=== PATIENT | male | born 1980 | race Caucasian/White ===

== ENCOUNTER 2017-02-08 10:48 | Emergency (ER) | payer OTHER ==
[~2017-02-08] VITALS: Ht 177.8 cm; Wt 94.2 kg
[~2017-02-08 10:48] MED LIST: ACID CONTROL150 MG PO; AMLODIPINE BES2.5 MG PO; AUGMENTIN875 MG PO; CARAFATE100 MG/ML PO; DEXILANT60 MG PO; FLEXERIL5 MG PO; INDOCIN25 MG PO; LIBRIUM25 MG PO; LIDOCAINE20 MG/1 M5 PO; LORTAB 5-325 M1 EACH PO; MOTRIN600 MG PO; MOTRIN800 MG PO; NAPROSYN500 MG PO; NORCO 5/3251 TABLET PO; NORCO 7.5/321 TABLET PO; PANTOPRAZOLE SO40 MG PO; PEN-VEE K,VEET500 MG PO; PRILOSEC20 MG PO; PROTONIX40 MG PO; THIAMINE HCL100 MG PO; TRAMADOL HCL50 MG PO; ULTRAM50 MG PO
[2017-02-08 11:05] VITALS: BP 168/108
[2017-02-08] MEDS ORDERED: KEFLEX500 MG PO (11:18)
[2017-02-08] MEDS ORDERED: BACTRIM,SEPT1 TABLET PO (11:18)
[2017-02-08] MEDS ORDERED: ULTRAM50 MG PO (11:18)
== END 2017-02-08 11:29 | disposition home or self-care (01) ==
LOC: EME 10:48
DX: L08.9 Local infection of the skin and subcutaneous tissue, unspecified (principal)
CPT/HCPCS: 99281; 99284

== ENCOUNTER 2017-03-19 09:42 | Inpatient (IN) | payer OTHER ==
[~2017-03-19] VITALS: Ht 177.8 cm; Wt 98.3 kg
[~2017-03-19 09:42] MED LIST changes: +BACTRIM,SEPT1 TABLET PO; +KEFLEX500 MG PO
[2017-03-19 11:01] LABS: BASOPHIL COUNT 0.1 K/uL (0-0.1); EOSINOPHIL (%) 0.7 % (0-5); HEMATOCRIT 55.5 % (38.0-50.0); IMMATURE GRANULOCYTE (%) 0.2 % (0.0-0.7); INSTRUMENT ABS NEUTROPHIL CT 2.9 K/uL; MCH 31.3 PG (29.0-34.0); MCHC 35.7 G/DL (30.0-36.0); MCV 87.7 FL (86-99); MEAN PLAT.VOLUME 9.6 uM^3 (9.0-12.4); MONOCYTE (%) 12.5 % (3-12); MONOCYTE COUNT 0.6 K/uL (0-0.8); NEUTROPHIL (%) 62.3 % (45-76); NEUTROPHIL COUNT 2.9 K/uL (1.8-6.4); PLATELET COUNT 231 K/uL (156-360); RBC DIS.WIDTH-CV 12.8 % (11.8-14.6); RBC DIS.WIDTH-SD 41.3 % (39-53); RED BLOOD COUNT 6.33 M/uL (4.00-5.50); WHITE BLOOD COUNT 4.6 K/uL (4.1-10.2)
[2017-03-19 11:08] LABS: CHLORIDE 103 mEq/L (99-109); POTASSIUM 4.1 mEq/L (3.7-5.4); SODIUM 139 mEq/L (136-147)
[2017-03-19 11:11] LABS: GLUCOSE 110 mg/dL (70-99)
[2017-03-19 11:12] LABS: ANION GAP 19 MEQ/L (2-14)
[2017-03-19 11:13] LABS: TOTAL BILIRUBIN 1.8 mg/dL (0.0-1.0)
[2017-03-19 11:14] LABS: ALKALINE PHOSPHATASE 105 IU/L (3-129); GFR ESTIMATE (CALCULATED) > 59 mL/min/
[2017-03-19 11:15] LABS: UREA NITROGEN (BUN) 18 mg/dL (9-23)
[2017-03-19 11:18] LABS: LIPASE 63 U/L (1.0-51.0)
[2017-03-19] MEDS ORDERED: NORVASC2.5 MG PO (14:23)
[2017-03-19] MEDS ORDERED: PROTONIX40 MG PO (14:23)
[2017-03-19 14:57] LABS: MAGNESIUM 2.3 mg/dL (1.3-2.7)
[2017-03-19 18:08] VITALS: BP 136/99
[2017-03-19 19:56] VITALS: BP 146/94
[2017-03-19 23:41] VITALS: BP 144/91
[2017-03-20 04:21] VITALS: BP 146/88
[2017-03-20 07:40] LABS: ALKALINE PHOSPHATASE 79 IU/L (3-129); ANION GAP 8 MEQ/L (2-14); CHLORIDE 99 MEQ/L (99-109); GFR ESTIMATE (CALCULATED) > 59 mL/min/; GLUCOSE 87 mg/dL (70-99); POTASSIUM 3.8 MEQ/L (3.7-5.4); SAMPLE HEMOLYSIS CHECK 0; SAMPLE ICTERIC CHECK 0; SAMPLE LIPEMIA CHECK 0; SODIUM 133 MEQ/L (136-147); TOTAL BILIRUBIN 2.2 MG/DL (0.0-1.0); UREA NITROGEN (BUN) 10 mg/dL (9-23)
[2017-03-20 07:48] LABS: MCH 32.8 PG (29.0-34.0); MCHC 36.4 G/DL (30.0-36.0); RBC DIS.WIDTH-CV 12.8 % (11.8-14.6); RBC DIS.WIDTH-SD 42.4 % (39-53); WHITE BLOOD COUNT 4.5 K/uL (4.1-10.2)
[2017-03-20 08:00] VITALS: BP 145/100
[2017-03-20 08:26] LABS: MEAN PLAT.VOLUME 10.2 uM^3 (9.0-12.4); PLAT.SUFFICIENCY DECREASED
[2017-03-20 08:33] LABS: PLATELET COUNT 128 K/uL (156-360)
[2017-03-20 09:09] LABS: LIPASE 86 U/L (1.0-51.0)
[2017-03-20 16:12] VITALS: BP 156/101
[2017-03-20 19:53] VITALS: BP 146/72
[2017-03-21 00:11] VITALS: BP 149/100
[2017-03-21 05:47] VITALS: BP 164/89
[2017-03-21 07:45] VITALS: BP 136/94
[2017-03-21 12:37] VITALS: BP 158/77
[2017-03-21] MEDS ORDERED: TRAMADOL HCL50 MG PO (14:53)
[2017-03-21] MEDS ORDERED: THIAMINE HCL100 MG PO (15:05)
[2017-03-21] MEDS ORDERED: FOLIC ACID1 MG PO (15:05)
== END 2017-03-21 16:15 | disposition home or self-care (01) | DRG 439 ==
LOC: EME → EDBD 09:42 → EME 09:42 → EDOF 14:12 → ENRESERV 14:15 → 3EAST 17:29
PROVIDERS: Emergency Medicine; Student in an Organized Health Care Education/Training Program
DX: K85.20 Alcohol induced acute pancreatitis without necrosis or infection (principal); F10.239 Alcohol dependence with withdrawal, unspecified; F17.210 Nicotine dependence, cigarettes, uncomplicated; I10 Essential (primary) hypertension; K21.9 Gastro-esophageal reflux disease without esophagitis; K76.0 Fatty (change of) liver, not elsewhere classified; Z60.2 Problems related to living alone; Z56.0 Unemployment, unspecified
CPT/HCPCS: 70140; 74177; 74183; 76705; 80053; 83690; 83735; 85025; 85027; 99281; 99285; C9113; J1170; J1650; J2060; J2270; J2405; J3010; J3411; J7030